=== PATIENT | male | born 1985 | race Caucasian/White ===

== ENCOUNTER → 2017-02-21 | Outpatient (CLI) | payer OTHER ==
[~2017-02-21] MED LIST: ALBUTEROL17 GM INH; AMOXICILLIN PO; AMOXICILLIN500 M1 PO; BACLOFEN10 MG PO; EC-NAPROSYN500 MG PO; ERYTHROMYC3.5 GM OPT OS; FLEXERIL10 MG PO; IBUPROFEN PO; IBUPROFEN600 MG PO; KETOPROFEN PO; LORTAB 5-325 M1 EACH; MUCINEX100 MG/5 M; NAPROSYN500 MG PO; NO MEDICATIONS; PHENERGAN PO; PREDNISONE PO; PREDNISONE10 MG/DOSE PO; PROMETHAZINE-D240 ML PO; SEIZURE MED; TAMIFLU75 M1 PO; TRAZODONE PO; VITAMIN D50000 UNIT PO; VOLTAREN50 MG PO; VOLTAREN75 MG PO; ZOFRAN ODT4 MG/UDTAB PO
--- NOTE | ~2017-02-21 | CR141 ---
[facility] A Service [facility] RADIOLOGY TEXT RESULTS PATIENT: WASHINGTON LIZ LOCATION: [facility] : 81 UNIT #: [id number] AGE: [address]: Kvng Jansen MD SEX: M ORDER DR: [id number] [facility]. [place], [place] [address] [id number] O MR#: [id number] Acc #: [id number] NAME: WASHINGTON LIZ : 1985 SEX: M STUDY DATE/TIME: 02/21/2017 13:03 UNIT: [facility] ROOM: STUDY DESCRIPTION: CR Hand Min 3 Views Lt Attending Physician: Kvng Jansen M.D. Referring Physician: Kvng Jansen M.D. Ordering Physician: Kvng Jansen M.D. [facility] REPORT This report is preliminary unless electronic signature is present EXAM Left hand. DATE OF EXAM 02/21/2017 INDICATIONS Abnormal bone scan, hot spots on the bone scan, first digit pain. Symptoms began a month ago. Abnormal bone scan today. Pain and swelling. REPORT 3 views left hand. COMPARISON No comparisons. FINDINGS The examination is negative. No acute fracture. No retained opaque foreign body. No focal erosive change or periosteal reaction. Joint spaces preserved. IMPRESSION 1. Negative. Dictated by... Sedrick Rios M.D. THIS IS AN ELECTRONICALLY VERIFIED REPORT Sedrick Rios M.D. at 02/23/2017 11:08 AM Nigel TD: 02/22/2017 19:07 JOB #: [id number] [facility] A Service [facility] RADIOLOGY TEXT RESULTS PATIENT: WASHINGTON LIZ LOCATION: [facility] : [facility] UNIT #: [id number] AGE: [address]: Kvng Jansen MD SEX: M ORDER DR: MEDICAL IMAGING REPORT Page 1 of 1 COPY
--- NOTE | ~2017-02-21 | NM8 ---
[facility] A Service [facility] RADIOLOGY TEXT RESULTS PATIENT: WASHINGTON LIZ LOCATION: [facility] : 83 UNIT #: [id number] AGE: [address]: Kvng Jansen MD SEX: M ORDER DR: [id number] [address] [place], [place] [address] [id number] O MR#: [id number] Acc #: [id number] NAME: WASHINGTON LIZ. : 1985 SEX: M STUDY DATE/TIME: 02/21/2017 11:24 UNIT: [facility] ROOM: STUDY DESCRIPTION: ID Bone or Joint Whole Body Attending Physician: Kvng Jansen M.D. Referring Physician: Kvng Jansen M.D. Ordering Physician: Kvng Jansen M.D. MEDICAL IMAGING REPORT This report is preliminary unless electronic signature is present EXAM Whole-body bone scan HISTORY 31-year-old male, hump in thoracic spine, back and shoulder pain worsening over 2-3 months. Left thumb pain. Elbow pain. No known trauma. No history of fracture. COMPARISON Cervical, thoracic and lumbar spine films 02/13/2017. Left hand films 02/21/2017. TECHNIQUE Whole-body selected spot images were performed in the axial and appendicular skeleton following intravenous administration of 27.8 mCi Tc-99m MDP. FINDINGS Examination demonstrates normal symmetric uptake of radiopharmaceutical throughout the axial and appendicular skeleton. Bilateral renal activity and normal bladder activity noted. In particular, no abnormal activity identified within the thoracic spine. IMPRESSION Normal whole-body bone scan. Dictated by... Riddhi Hernandez M.D. THIS IS AN ELECTRONICALLY VERIFIED REPORT [facility] A Service [facility] RADIOLOGY TEXT RESULTS PATIENT: WASHINGTON LIZ LOCATION: [facility] : 81 UNIT #: [id number] AGE: [address]: Kvng Jansen MD SEX: M ORDER DR: Riddhi Hernandez M.D. at 02/21/2017 5:23 PM Mayank TD: 02/21/2017 15:36 JOB #: [id number] MEDICAL IMAGING REPORT Page 1 of 1 COPY
== END | disposition home or self-care (01) ==
LOC: CNUC 07:57
DX: R94.8 Abnormal results of function studies of other organs and systems (principal)
CPT/HCPCS: 73130; 78306; A9503

== ENCOUNTER 2017-04-05 07:48 | Emergency (ER) | payer OTHER ==
--- NOTE | ~2017-04-05 | EKG ---
PATIENT: WASHINGTON LIZ UNIT #: [id number] Ventricular Rate: 112 BPM Atrial Rate: 112 BPM P-R Interval: 144 ms QRS Duration: 98 ms Q-T Interval: 322 ms QTC Calculation(Bezet): 439 ms P Wheaton: 87 degrees Calculated R Wheaton: 87 degrees Calculated T Wheaton: 71 degrees Diagnosis Line: Sinus tachycardia Diagnosis Line: Otherwise normal ECG Diagnosis Line: When compared with ECG of 31-OCT-2015 03:34, Diagnosis Line: Vent. rate has increased BY 49 BPM Diagnosis Line: T wave amplitude has decreased in Inferior leads Diagnosis Line: Confirmed by NICOLE METCALF MD ([id number]) on Diagnosis Line: 04/11/2017 8:27:35 AM INTERPRETING MD: TEA ANDERSEN
--- NOTE | ~2017-04-05 | CR72 ---
[facility] [place] A Service of [facility] RADIOLOGY TEXT RESULTS PATIENT: WASHINGTON LIZ LOCATION: [facility] : 81 UNIT #: [id number] AGE: [address]: Stuart Caldwell MD SEX: M ORDER DR: [id number] [place] [address] [id number] P MR#: [id number] Acc #: [id number] NAME: WASHINGTON LIZ : 1985 SEX: M STUDY DATE/TIME: 04/05/2017 8:15 UNIT: [facility] ROOM: STUDY DESCRIPTION: CR Chest Single View Portable Attending Physician: Stuart Caldwell M.D. Ordering Physician: Stuart Caldwell M.D. Primary Care Physician: [facility] MEDICAL IMAGING REPORT This report is preliminary unless electronic signature is present. EXAM Portable chest 04/05/2017 HISTORY 31-year-old male patient with right-sided chest pain, hyperventilating, anxious. Patient is smoker. COMPARISON Chest 08/28/2016. FINDINGS AP upright portable chest demonstrates normal cardiac size and configuration. Hilar structures and mediastinal contours are preserved. Lungs are mildly hyperinflated but clear with no infiltrates. Costophrenic angles are preserved. IMPRESSION Mild pulmonary hyperinflation. Negative chest otherwise. Dictated by... Alonzo Rebollar M.D. THIS IS AN ELECTRONICALLY VERIFIED REPORT Alonzo Rebollar M.D. at 04/05/2017 10:55 AM PASCUAL/deedee TD: 04/05/2017 09:02 JOB #: [id number] MEDICAL IMAGING REPORT Page 1 of 1
[~2017-04-05 07:48] MED LIST changes: -LORTAB 5-325 M1 EACH; -SEIZURE MED
[2017-04-05] MEDS ORDERED: LORTAB 5-325 M1 EACH (08:02)
[2017-04-05] MEDS ORDERED: SEIZURE MED (08:02)
== END 2017-04-05 09:40 | disposition home or self-care (01) ==
LOC: SED 07:48
DX: F41.9 Anxiety disorder, unspecified (principal); R07.9 Chest pain, unspecified; R05 Cough; F17.210 Nicotine dependence, cigarettes, uncomplicated
CPT/HCPCS: 71010; 93005; 96372; 99285; J2060